=== PATIENT | female | born 1990 | race Caucasian/White ===

== ENCOUNTER 2021-04-11 20:38 | Inpatient (IN) ==
[2021-04-11] MEDS ORDERED: ONDANSETRON 4 MG/2 ML VIAL IV PRN (20:56)
[2021-04-11] MEDS ORDERED: BUTORPHANOL 2 MG/ML VIAL IV PRN (20:56)
[2021-04-11] MEDS ORDERED: MEPERIDINE 50 MG/1 ML VIAL IV PRN (20:56)
[2021-04-11 21:13] LABS: Basophils % 0.2 % (0.0-0.8); Eosinophils % 0.2 % (0.00-10.9); Hematocrit 36.2 VOL% (35.7-47.0); Hemoglobin 11.3 GM/DL (12.0-16.0); Immature Granulocytes % 0.6 %; Immature Granulocytes Absolute 0.07 #; Lymphocytes # 2.5 10*3/uL (1.4-4.0); Lymphocytes % 22.2 % (21.3-54.2); Mean Corpuscular HGB Conc 31.2 GM/DL (32-36); Mean Corpuscular Volume 80.1 FL (87-102); Monocytes % 5.3 % (1.7-12.7); Neutrophils % 71.5 % (38.7-73.9); Platelet Count 259 T/CUMM (130-400); Red Blood Count 4.52 MC/CUMM (3.8-5.5); White Blood Count 11.2 T/CUMM (4-12)
[2021-04-11 21:37] LABS: Albumin 2.8 G/DL (3.4-5.0); Bilirubin,Total 0.5 MG/DL (0.20-1.00); Calcium 8.9 MG/DL (8.5-10.1); Osmolality,Calculated 274.7 MOS/KG (273-304); Potassium 3.6 MMOL/L (3.5-5.1); Total Protein 6.8 G/DL (6.4-8.2)
[2021-04-11] MEDS ORDERED: AMPICILLIN INJ 2,000 MG in SODIUM CHLORIDE 0.9% 100 ML IV ONE (22:30)
[2021-04-12] MEDS: LACTATED RINGERS 1,000 ML IV SCH ×2 (00:16→14:16)
[2021-04-12] MEDS ORDERED: AMPICILLIN 1,000 MG VIAL ONE (03:40)
[2021-04-12] MEDS ORDERED: SODIUM CHLORIDE 0.9% 100 ML IV ONE (03:41)
[2021-04-12] MEDS: AMPICILLIN INJ 1,000 MG in SODIUM CHLORIDE 0.9% 100 ML IV SCH ×6 (03:53→21:26)
[2021-04-13] MEDS: AMPICILLIN INJ 1,000 MG in SODIUM CHLORIDE 0.9% 100 ML IV SCH ×4 (00:55→13:26)
[2021-04-13] MEDS ORDERED: OXYTOCIN/LR 20 UNIT/1,000 ML BAG IV SCH (06:30)
[2021-04-13] MEDS: LACTATED RINGERS 1,000 ML IV SCH ×3 (06:50→19:04)
[2021-04-13] MEDS ORDERED: FAMOTIDINE 20 MG/2 ML VIAL IV ONE (07:02)
[2021-04-13] MEDS ORDERED: hydrOXYzine HCL 25 MG/1 ML VIAL IM PRN (07:02)
[2021-04-13] MEDS ORDERED: PROMETHAZINE 25 MG/1 ML VIAL IM PRN (07:02)
[2021-04-13] MEDS ORDERED: diphenhydrAMINE 50 MG/1 ML VIAL IV PRN (07:02)
[2021-04-13] MEDS ORDERED: CITRIC ACID/SODIUM CITRATE 30 ML UDCUP PO ONE (07:02)
[2021-04-13] MEDS ORDERED: ePHEDrine 50 MG/ML VIAL IV PRN (07:02)
[2021-04-13] MEDS ORDERED: NALOXONE 0.4 MG/ML VIAL IV PRN (07:02)
[2021-04-13] MEDS: fentaNYL 2 MCG/ROPIV 0.2% EPID 100 ML EPIDURAL SCH ×2 (08:00→14:46)
[2021-04-13] MEDS ORDERED: INFLUENZA VIRUS VACCINE 0.5 ML SYRINGE IM ONE (09:10)
[2021-04-13] MEDS ORDERED: TRANEXAMIC ACID 1,000 MG/10 ML VIAL ONE (18:23)
[2021-04-13] MEDS ORDERED: OXYTOCIN/LR 20 UNIT/1,000 ML BAG IV ONE ×2 (18:23→21:29)
[2021-04-13] MEDS ORDERED: METHYLERGONOVINE 0.2 MG/1 ML AMP ONE (18:23)
[2021-04-13] MEDS ORDERED: miSOPROStoL 200 MCG TABLET ONE (18:23)
[2021-04-13] MEDS ORDERED: CARBOPROST TROMETHAMINE 250 MCG/ML AMP IM ONE (18:23)
[2021-04-13 19:05] LABS: Cord Venous Blood PO2 24.4
[2021-04-13] MEDS ORDERED: IBUPROFEN 800 MG TABLET PO ONE (19:23)
[2021-04-13] MEDS ORDERED: HYDROCORTISONE 2.5% RECTAL CREAM 30 GM TUBE TOP PRN (21:29)
[2021-04-13] MEDS ORDERED: ACETAMINOPHEN 325 MG TABLET PO PRN (21:29)
[2021-04-13] MEDS ORDERED: RHO(D) IMMUNE GLOBULIN 300 MCG SYRINGE IM ONE (21:29)
[2021-04-13] MEDS ORDERED: IBUPROFEN 800 MG TABLET PO PRN (21:29)
[2021-04-13] MEDS ORDERED: ONDANSETRON 4 MG/2 ML VIAL IV PRN (21:29)
[2021-04-13] MEDS ORDERED: DIPH/TET/ACEL PERT BOOSTER VACCINE 0.5 ML VIAL IM ONE (21:29)
[2021-04-13] MEDS ORDERED: oxyCODONE/ACETAMINOPHEN 5-325 MG TABLET PO PRN (21:29)
[2021-04-13] MEDS ORDERED: BISACODYL 10 MG SUPP RECTAL PRN (21:29)
[2021-04-13] MEDS ORDERED: BENZOCAINE 20%/MENTHOL 0.5% SPRAY 56 GM CAN TOP PRN (21:29)
[2021-04-13] MEDS ORDERED: LANOLIN 50% CREAM 0.3 OZ TUBE TOP PRN (21:29)
[2021-04-13] MEDS ORDERED: MEASLES/MUMPS/RUBELLA VACCINE 0.5 ML VIAL SUBCUT ONE (21:29)
[2021-04-13] MEDS ORDERED: WITCH HAZEL PADS 100/JAR TOP PRN (21:29)
[2021-04-13] MEDS: oxyCODONE/ACETAMINOPHEN 5-325 MG TABLET PO PRN (21:49)
[2021-04-14] MEDS: oxyCODONE/ACETAMINOPHEN 5-325 MG TABLET PO PRN ×3 (03:24→21:26)
[2021-04-14 07:06] LABS: Basophils % 0.2 % (0.0-0.8); Eosinophils # 0.1 10*3/uL (0.0-0.87); Eosinophils % 0.5 % (0.00-10.9); Hematocrit 28.9 VOL% (35.7-47.0); Hemoglobin 9.3 GM/DL (12.0-16.0); Immature Granulocytes % 0.6 %; Immature Granulocytes Absolute 0.07 #; Lymphocytes # 2.4 10*3/uL (1.4-4.0); Lymphocytes % 19.8 % (21.3-54.2); Mean Corpuscular HGB Conc 32.2 GM/DL (32-36); Mean Corpuscular Volume 80.5 FL (87-102); Mean Platelet Volume 10.9 FL (9.6-12.0); Monocytes % 7.2 % (1.7-12.7); Neutrophils % 71.7 % (38.7-73.9); Platelet Count 163 T/CUMM (130-400); Red Blood Count 3.59 MC/CUMM (3.8-5.5); Red Cell Distribution Width 15.2 % (9.3-17.3); White Blood Count 12.3 T/CUMM (4-12)
[2021-04-14] MEDS: IRON (CARBONYL)/VIT C/B12/FA TABLET PO SCH (08:35)
[2021-04-14] MEDS: DOCUSATE SODIUM 100 MG CAPSULE PO SCH ×2 (08:35→21:43)
[2021-04-15] MEDS: oxyCODONE/ACETAMINOPHEN 5-325 MG TABLET PO PRN ×2 (06:04→10:34)
[2021-04-15 08:50] VITALS: BP 130/86
[2021-04-15] MEDS: DOCUSATE SODIUM 100 MG CAPSULE PO SCH ×2 (10:33→10:34)
[2021-04-15] MEDS: IRON (CARBONYL)/VIT C/B12/FA TABLET PO SCH (10:34)
== END 2021-04-15 13:30 | disposition home or self-care (01) | DRG 807 ==
LOC: N.LDOUT 20:38 → N.LD 20:40 → N.OB 04-14 00:05
PROVIDERS: ADMIT Specialist; ATTEND Specialist